=== PATIENT | female | born 1965 | race African-American/Black ===

== ENCOUNTER → 2020-04-07 | Outpatient (CLI) | payer OTHER | LOC: BC 04-06 15:11 → ULTRA 09:00 → BC 09:00 | PROVIDERS: ATTEND Family Medicine | DX: Z12.31 Encounter for screening mammogram for malignant neoplasm of breast (principal); N83.201 Unspecified ovarian cyst, right side; N92.0 Excessive and frequent menstruation with regular cycle; N94.6 Dysmenorrhea, unspecified ==

== ENCOUNTER → 2021-04-19 | Outpatient (CLI) | payer OTHER | LOC: BC 13:49 | PROVIDERS: ATTEND Family Medicine | DX: Z12.31 Encounter for screening mammogram for malignant neoplasm of breast (principal) ==

== ENCOUNTER 2021-05-10 18:26 | Emergency (ER) | payer OTHER ==
[~2021-05-10] VITALS: Ht 154.9 cm; Wt 56.2 kg
[2021-05-10 18:30] VITALS: BP 152/94
[2021-05-10] MEDS ORDERED: VENTOLIN HFA INH8 GM INH (19:43)
[2021-05-10] MEDS ORDERED: TESSALON PERLE100 MG PO (19:43)
== END 2021-05-10 19:57 | disposition home or self-care (01) ==
LOC: ER 18:26
PROVIDERS: Emergency Medicine
DX: J40 Bronchitis, not specified as acute or chronic (principal); Z20.822 Contact with and (suspected) exposure to COVID-19